=== PATIENT | male | born 1940 | race Caucasian/White ===

== ENCOUNTER 2023-08-08 09:53 | Observation (INO) ==
--- NOTE | 2023-07-09 13:08 | PAT Medication Instructions ---
Medication Instructions Date of Service July 09, 2023 Home Medications albuterol sulfate 90 mcg/actuation aerosol inhaler (ProAir HFA) 1 inh inhalation QID PRN Bronchospasm antiarthritic combination no.2 900 mg tablet (glucosamine-chondroitin) 900 mg PO BID ascorbate calcium (vitamin C) 500 mg tablet 500 mg PO QAM aspirin 81 mg tablet,delayed release (Adult Low Dose Aspirin) 81 mg PO QPM calcium carbonate 600 mg-vitamin D3 5 mcg (200 unit) tablet 1 tab PO QAM calcium polycarbophil 625 mg tablet (FiberCon) 625 mg PO BID cetirizine 10 mg capsule (All Day Allergy (cetirizine)) 10 mg PO QAM PRN Allergy Symptoms cholecalciferol (vitamin D3) 25 mcg (1,000 unit) capsule 25 mcg PO QAM coenzyme Q10 200 mg capsule 200 mg PO QPM diazepam 5 mg tablet (Valium) 5 mg PO BID PRN Anxiety lisinopril 5 mg tablet 5 mg PO QPM metoprolol succinate 25 mg tablet,extended release 24 hr (Toprol XL) 25 mg PO QPM multivitamin 1 tab PO QAM nitroglycerin 0.4 mg sublingual tablet (Nitrostat) 0.4 mg sublingual Q5M PRN Chest Pain rosuvastatin 20 mg tablet (Crestor) 20 mg PO QPM sertraline 25 mg tablet (Zoloft) 50 mg PO QAM sildenafil 100 mg tablet (Viagra) 100 mg PO DAILY PRN Erectile Dysfunction testosterone 50 mg/5 gram (1 %) transdermal gel 1 tube transdermal QAM levothyroxine 25 mcg tablet 25 mcg PO QAM naproxen sodium 220 mg tablet (Aleve) 220 mg PO Q12H PRN Pain Continue as directed nitroglycerin 0.4 mg sublingual tablet (Nitrostat) 0.4 mg sublingual Q5M PRN Chest Pain (if needed) ASK your surgeon for instructions naproxen sodium 220 mg tablet (Aleve) 220 mg PO Q12H PRN Pain ASK your prescriber and surgeon testosterone 50 mg/5 gram (1 %) transdermal gel 1 tube transdermal QAM STOP taking 2 weeks before surgery antiarthritic combination no.2 900 mg tablet (glucosamine-chondroitin) 900 mg PO BID coenzyme Q10 200 mg capsule 200 mg PO QPM STOP taking 24 hours before surgery sildenafil 100 mg tablet (Viagra) 100 mg PO DAILY PRN Erectile Dysfunction DO NOT take the morning of surgery ascorbate calcium (vitamin C) 500 mg tablet 500 mg PO QAM calcium carbonate 600 mg-vitamin D3 5 mcg (200 unit) tablet 1 tab PO QAM calcium polycarbophil 625 mg tablet (FiberCon) 625 mg PO BID cetirizine 10 mg capsule (All Day Allergy (cetirizine)) 10 mg PO QAM PRN Allergy Symptoms cholecalciferol (vitamin D3) 25 mcg (1,000 unit) capsule 25 mcg PO QAM multivitamin 1 tab PO QAM Take morning of surgery With a small sip of water, OTHERWISE NOTHING TO EAT OR DRINK AFTER MIDNIGHT: albuterol sulfate 90 mcg/actuation aerosol inhaler (ProAir HFA) 1 inh inhalation QID PRN Bronchospasm (use if needed; please bring with you to hospital day of surgery if possible) aspirin 81 mg tablet,delayed release (Adult Low Dose Aspirin) 81 mg PO QPM (unless surgeon directed otherwise) diazepam 5 mg tablet (Valium) 5 mg PO BID PRN Anxiety (if needed) sertraline 25 mg tablet (Zoloft) 50 mg PO QAM levothyroxine 25 mcg tablet 25 mcg PO QAM Take evening before surgery albuterol sulfate 90 mcg/actuation aerosol inhaler (ProAir HFA) 1 inh inhalation QID PRN Bronchospasm (if needed) calcium polycarbophil 625 mg tablet (FiberCon) 625 mg PO BID diazepam 5 mg tablet (Valium) 5 mg PO BID PRN Anxiety (if needed) lisinopril 5 mg tablet 5 mg PO QPM metoprolol succinate 25 mg tablet,extended release 24 hr (Toprol XL) 25 mg PO QPM rosuvastatin 20 mg tablet (Crestor) 20 mg PO QPM Other Notes If you have any questions please call us at [phone] or [phone] or [phone] or [phone]
--- NOTE | 2023-07-16 10:35 | Anesthesiology Consultation ---
Date of Service July 16, 2023 Assessment & Plan (1) Encounter for pre-operative examination: - Check BSG AM DOS - Infectious disease screening: Per assessment on 07/07/23: No known infectious disease contacts or current infectious disease symptoms. No noted recent Covid positive test result. - Outpatient joint assessment: Pt currently scheduled for inpatient pathway. If surgeon requests review for outpatient joint pathway, patient is not recommended candidate for outpatient joint program from anesthesia standpoint based upon available information. - Cardiology visit (10/31/2022): "the patient's history of coronary heart disease dates back to 09/04/2013 when he presented to a local hospital in [place] with a non ST segment elevation myocardial infarction. He underwent PCI to the ramus intermedius with a drug-eluting stent. In September,, he subsequently underwent staged PCI of a residual LAD stenosis with a drug-eluting stent at [facility]. He has a known 50 to 60% stenosis of the ostial portion the first obtuse marginalbranch which has been managed medically.. Plan:Continuechronic medications including aspirin, rosuvastatin, lisinopril, metoprolol. Nonrheumatic aortic valve insufficiency.. Stable moderate aortic valve regurgitation noted on recent echocardiogram. Plan: Repeat echocardiogram in 1 year, due, September,.. Ascending aortic aneurysm.. Noncontrast CT September, revealed stable maximum dimension of 4.8 x 4.6 centimeters. Asymptomatic. Continue surveillance, repeat CT at a 1 year interval. Patient has history of pulmonary nodules. Stable on recent CT. HTN, goal below 140/90.. Stable.. Plan: Continue lisinopril, metoprolol. Dyslipidemia, goal LDL below 70.. Plan: Continue current dose of rosuvastatin.. Follow Up: Return in about 1 year" Chart Review Chart Review: Acceptable Risk for Surgery and Patient seen in Pre Admission Testing Teaching & Discussion Pre-Anesthesia Teaching/Discussion Notes: Instructed NPO after midnight before surgery,except medications with 15 cc of water. Medication instructions provided according to the PAT guidelines. History Surgery Operation Date: 08/08/23 09:10 Proposed Procedures p Right Total Knee Arthroplasty - Dwain Suggs, Height/Weight Height: 5 ft 9.5 in Weight: 95.2 kg Allergies Allergy/AdvReac Type Severity Reaction Status Date / Time Sulfa (Sulfonamide Allergy Intermediate WBC count Verified 07/16/23 11:18 Antibiotics) "changes" (1968) Medications Home Medications Medication Instructions Recorded Confirmed Last Taken albuterol sulfate 90 mcg/actuation 1 inh inhalation QID PRN 03/14/21 07/07/23 Unknown aerosol inhaler (ProAir HFA) Bronchospasm antiarthritic combination no.2 900 900 mg PO BID 03/14/21 07/07/23 09/26/21 mg tablet (glucosamine-chondroitin) ascorbate calcium (vitamin C) 500 500 mg PO QAM 03/14/21 07/07/23 09/26/21 mg tablet aspirin 81 mg tablet,delayed 81 mg PO QPM 03/14/21 07/07/23 09/26/21 release (Adult Low Dose Aspirin) calcium carbonate 600 mg-vitamin 1 tab PO QAM 03/14/21 07/07/23 09/26/21 D3 5 mcg (200 unit) tablet calcium polycarbophil 625 mg 625 mg PO BID 03/14/21 07/07/23 09/26/21 tablet (FiberCon) cetirizine 10 mg capsule (All Day 10 mg PO QAM PRN Allergy Symptoms 03/14/21 07/07/23 09/26/21 Allergy (cetirizine)) cholecalciferol (vitamin D3) 25 25 mcg PO QAM 03/14/21 07/07/23 09/26/21 mcg (1,000 unit) capsule coenzyme Q10 200 mg capsule 200 mg PO QPM 03/14/21 07/07/23 09/26/21 diazepam 5 mg tablet (Valium) 5 mg PO BID PRN Anxiety 03/14/21 07/07/23 Unknown lisinopril 5 mg tablet 5 mg PO QPM 03/14/21 07/07/23 09/26/21 metoprolol succinate 25 mg 25 mg PO QPM 03/14/21 07/07/23 09/26/21 tablet,extended release 24 hr (Toprol XL) multivitamin 1 tab PO QAM 03/14/21 07/07/23 09/26/21 nitroglycerin 0.4 mg sublingual 0.4 mg sublingual Q5M PRN Chest 03/14/21 07/07/23 Unknown tablet (Nitrostat) Pain rosuvastatin 20 mg tablet (Crestor) 20 mg PO QPM 1107/07/23 09/26/21 sertraline 25 mg tablet (Zoloft) 50 mg PO QAM 03/14/21 07/07/23 Unknown sildenafil 100 mg tablet (Viagra) 100 mg PO DAILY PRN Erectile 03/14/21 07/07/23 Unknown Dysfunction testosterone 50 mg/5 gram (1 %) 1 tube transdermal QAM 03/14/21 07/07/23 Unknown transdermal gel levothyroxine 25 mcg tablet 25 mcg PO QAM 07/07/23 07/07/23 Unknown naproxen sodium 220 mg tablet 220 mg PO Q12H PRN Pain 07/07/23 07/07/23 Unknown (Aleve) Past Medical History Medical History Anxiety Aortic aneurysm Monitored by [facility] cardio, CT chest/Echo 09/2022 Arthritis Hands Coronary artery disease Stent x1 (2013) History of COVID-19 02/2023: mild symptoms, resolved Hx of myocardial infarction 2013 > stent x1 Hypercholesteremia Hypertension Hypothyroidism Osteoarthritis Prediabetes Per [facility] records Seasonal depression Spinal stenosis Exercise / Class Metabolic Activity II 4-5 Yardwork/Stairs/Walk up hill (one FS: No CP, no SOB) Past Family History Family History Father Myocardial infarction Mother Hypertension Brother Hypertension Past Surgical History Surgical History History of bursectomy Left History of cardiac cath 2014- stent x1 History of colonoscopy History of heart artery stent 2014 Hx of bilateral cataract extraction Hx of nasal polypectomy benign Past Anesthesia History No Hx of Anesthesia Complications and No Family Hx of Anesthesia Complications History of PONV No Hx of PONV and No Hx of Motion Sickness Social History Smoking Status: Light tobacco smoker tobacco type: cigars (Rare cigar use (none in last several months) ) Do You Dip or Chew Tobacco: No Hx Alcohol Use: No Hx Substance Use: No substance use type: does not use Review of Systems Patient denies chest pain, shortness of breath, dyspnea on exertion, fever, chills, cough, wheezing. Physical Exam Vital Signs BP 129/65 P 58 TEMP 98.2 SP02 97%RA RESP 18 Physical Full cervical extension range of motion. Full TMJ range of motion. TMD 3.5 finger breaths Mallampati Score 2 Dentition: missing sides/molars, Right upper side removable tooth Lungs: clear throughout to auscultation Cardiac: regular rate and rhythm, no murmurs noted Spine: normal Carotid arteries: negative bruit Extremities: no LE edema Lab Results Anesthesia Preop Results Results Anesthesia Widget: WBC 7.26 K/ul (4.8-10.8) 07/16/23 Hgb 15.8 g/dl (14.0-18.0) 07/16/23 Hct 47.2 % (42.0-52.0) 07/16/23 Plt 188 K/uL (130-400) 07/16/23 Na 136 mmol/L (136-145) 07/16/23 K 4.9 mmol/L (3.5-5.1) 07/16/23 Cl 102 mmol/L (98-107) 07/16/23 CO2 31 mmol/L (21-32) 07/16/23 BUN 18 mg/dl (6-23) 07/16/23 Creat 0.95 mg/dl (0.6-1.4) 07/16/23 Glucose Level 101 mg/dl (70-99(Fasting)) H 07/16/23 PT 11.7 Seconds (9.0-12.0) 07/16/23 PTT 32 Seconds (21-31) H 07/16/23 INR 1.1 (0.9-1.1) 07/16/23 Blood Type O Negative 07/16/23 Antibody Screen NEGATIVE 07/16/23 Testing Electrocardiogram Date: 07/16/23 SB with first degree AVB at 51bpm. "Otherwise normal ECG" No significant change compared to per urology nurse comparison. Echocardiogram Date: 09/30/22 LVEF 60-64%. LV wall motion is normal. Mildly increased concentric LV wall thickness. Grade 1 diastolic dysfunction. Mild AV sclerosis. Moderate AR. Mild MR/TR. Moderately enlarged ascending aorta, 4.5cm. Moderately enlarged aortic root, 4.6cm. Compared to 10/08/2021, no significant change per report. Other Testing CT scan Date: 10/01/23 Stable dilated ascending aorta measuring up to 4.8 x 4.6 cm since prior chest CT. Consider continued surveillance. Few small subcentimeter pulmonary nodules bilaterally, also stable since the prior chest CT. No new pulmonary nodules.
[~2023-08-08 09:53] MED LIST: ROPIVACAINE 0.5% 5 MG/ML 30 ML VIAL ONE
[2023-08-08] MEDS: LR 60ML/HR IV SCH (10:16)
[2023-08-08] MEDS ORDERED: MIDAZOLAM HCL 1 MG/ML 2ML VIAL ONE (10:48)
[2023-08-08] MEDS: GABAPENTIN 300 MG CAP PO SCH (11:11)
[2023-08-08] MEDS: LR 500ML BOLUS, THEN 15ML/HR IV SCH (11:11)
[2023-08-08] MEDS: dexAMETHasone**PF** 10 MG/ML VIAL IV SCH (11:12)
[2023-08-08] MEDS: FAMOTIDINE 20 MG TAB PO SCH (11:12)
[2023-08-08] MEDS: ACETAMINOPHEN 500 MG TAB PO SCH ×2 (11:12→21:03)
[2023-08-08] MEDS ORDERED: fentaNYL citrate PF 100 MCG/2 ML VIAL IV PRN (11:18)
[2023-08-08] MEDS ORDERED: HYDROmorphone INJ 1 MG/ML SYRINGE IV PRN (11:18)
[2023-08-08] MEDS ORDERED: ePHEDrine sulfate 50 MG/ML AMP IV PRN (11:18)
[2023-08-08] MEDS ORDERED: ONDANSETRON INJ 2 MG/ML 2 ML VIAL IV PRN ×2 (11:18→15:23)
[2023-08-08] MEDS ORDERED: ATROPINE SULFATE 0.1 MG/ML 10ML SYR IV PRN (11:18)
[2023-08-08] MEDS ORDERED: BUPIVACAINE 0.5 % 5 MG/1 ML PF 10ML VIAL ONE (11:55)
[2023-08-08] MEDS: TRANEXAMIC ACID 1,000 MG **IV Pre-op IV SCH (12:02)
--- NOTE | 2023-08-08 12:11 | History & Physical Bridge Note ---
Date of Service August 08, 2023 History & Physical Bridge Note I have examined the patient, reviewed the History & Physical and in the interval since the performance of the History & Physical I have noted the following changes of clinical significance: no changes noted
[2023-08-08] MEDS: ceFAZolin 2000MG 2,000 MG/15 ML SYR IV SCH (12:24)
[2023-08-08] MEDS ORDERED: PROPOFOL IV EMULSION 10 MG/ML 20 ML VIAL IV ONE ×2 (12:25→13:13)
[2023-08-08] MEDS ORDERED: ONDANSETRON INJ 2 MG/ML 2 ML VIAL ONE (13:03)
[2023-08-08] MEDS: TRANEXAMIC ACID 1,000 MG **IV Intra-op IV SCH (13:28)
--- NOTE | 2023-08-08 13:32 | Operative Report ---
PG Post Operative Report Pre & Post Diagnosis Operation Date: 08/08/23 12:00 Pre-Op Diagnosis: Degenerative Joint Disease Right Knee Post-Op Diagnosis: Degenerative Joint Disease Right Knee I identified the patient and participated in the time-out.: Yes Procedure Operation Date: 08/08/23 12:00 Actual Procedures p Right Total Knee Arthroplasty(Right) - Dwain Suggs DO Surgeon Dwain Suggs DO Banquet Captain Reynaldo Jansen PA-C Estimated Blood Loss 30 Findings Consistent with Post-Op Diagnosis Specimens Right femoral and tibial bone Description of Procedure Implants used: I used a Devin Persona total knee arthroplasty system with a size 11 standard PS femur, G tibia, 34 oval patella, and a size 14 CPS polyethylene bearing. All components were cemented in place with Biomet cement. Gennaro arrived [facility] for the above procedure. He was seen in the preoperative holding area and the operative extremity was identified and signed. He was given a preoperative antibiotic, TXA, a spinal anesthetic and an adductor nerve block. He was taken back to the operating room and laid on the table in supine position. He was given basic sedation. The operative knee was then prepped and draped in sterile fashion. A timeout was done, and the patient and the operative extremity was properly identified. A midline incision was made directly over the patella. Dissection was taken down to the extensor mechanism. A medial parapatellar arthrotomy was used. The medial retinaculum was released and the fat pad was mostly excised. The knee was flexed and the ACL, PCL, and meniscus were removed. A drill was sent down the center of the femoral canal followed by an intramedullary jeremias. Off that jeremias a distal femoral cutting block was placed. 9 mm was resected off the distal femur at 5 of valgus. A posterior referencing AP sizing guide was then placed on the distal femur. The femur measured to be a size 11. 2 drill holes were placed in 3 of external rotation. A 4-in-1 cutting block was then impacted into place. Anterior, posterior, and chamfer cuts were then made. The proximal tibia was then exposed. An external tibial alignment guide was placed. A tibial cut guide was then anchored in place and the proximal tibia was then resected. The posterior aspect of the knee was then opened up and any additional meniscus fragments and osteophytes were removed. The tibia measured to be a size G. The tibial plate was then placed in the appropriate rotation and the tibia was drilled and punched. Trial components were then placed. I used a size 14 CPS polyethylene insert. The knee was brought through a full range of motion and felt to be stable. The peg holes for the femoral component were then drilled. The patella was then everted and 9 mm was resected off the posterior aspect of the patella. The patella measured to be a size 34 oval. 3 peg holes were then drilled. A trial patella was placed. The knee was once again brought through a full range of motion and felt to be stable. Trial components were then removed. The surrounding soft tissues were injected with 100 cc of an orthopedic pain control cocktail. All components were then cemented into place with Biomet cement. The final polyethylene insert was then snapped into place. Once cement was dry the tourniquet was deflated. Hemostasis was obtained. A dilute betadyne lavage was then done for 3 minutes. The joint was then irrigated with normal saline solution. The medial parapatellar arthrotomy was then closed with #1 Vicryl suture. The skin was closed with 2-0 Vicryl, 3-0V lock suture, and jona. A soft compressive dressing was placed. He was then transferred to a hospital bed and taken to the postanesthesia care unit in stable condition. He tolerated the procedure well. Reynaldo Jansen PA-C, was present for the entire procedure. He was critical for patient positioning, prepping, draping, retraction exposure, wound closure and application of sterile dressing. I attest to the content of the Intraoperative Record and any orders documented therein. Any exceptions are noted below.
[2023-08-08] MEDS: ROPIV 0.5% 246mg, Ketorolac 30mg, EPINEPHrine 0.5mg in NSS INFIL SCH (13:36)
[2023-08-08] MEDS: ORTHO JOINT ANESTHETIC ONE (13:37)
--- NOTE | 2023-08-08 14:42 | XRay Report ---
XR knee RT 1 or 2V routine HISTORY: 82 years-old Male Surgical Post Op right knee arthroplasty COMPARISON: 07/16/2023 TECHNIQUE: 2 views of the right knee FINDINGS: Total joint arthroplasty with patellar resurfacing. Anterior midline skin jona with expected posto perative soft tissue swelling and deep tissue air. Arterial calcifications. No acute fracture or disl ocation. IMPRESSION: Total joint arthroplasty with expected postoperative changes. ACT 112: Negative or not required by law. The above report was generated using voice recognition software. It may contain grammatical, syntax o r spelling errors. Electronically signed by: Esteban Gallegos M.D. 08/08/2023 2:41 PM
[2023-08-08] MEDS: SODIUM CHLORIDE 0.9% 1,000 ML IV SCH (15:20)
[2023-08-08] MEDS ORDERED: oxyCODONE HCL IR 5 MG TAB (IMMEDIATE RELEASE) PO PRN (15:23)
[2023-08-08] MEDS ORDERED: MAGNESIUM HYDROXIDE SUSP 30 ML UDC PO PRN (15:23)
[2023-08-08] MEDS ORDERED: NALOXONE HCL 0.4 MG/1 ML VIAL/CARP IV PRN (15:23)
[2023-08-08] MEDS ORDERED: traMADol HCL 50 MG TABLET PO PRN (15:23)
[2023-08-08] MEDS ORDERED: METOCLOPRAMIDE HCL INJ 5 MG/ML 2 ML VIAL IV PRN (15:23)
[2023-08-08] MEDS ORDERED: bisacodyL 10 MG SUPP PR PRN (15:23)
--- NOTE | 2023-08-08 15:35 | Anesthesiology Progress Note ---
Date of Service August 08, 2023 Anesthesia Post Procedure Vital Signs Vital Signs: Temp Pulse Pulse Resp BP Pulse Ox O2 Del Method 08/08/23 15:00 61 16 144/65 H 94 Room Air 08/08/23 14:45 67 14 105/66 95 Room Air 08/08/23 14:30 36.4 C L 55 L 17 128/57 L 95 Room Air 08/08/23 14:25 57 L 19 123/57 L 94 Room Air 08/08/23 14:15 56 L 16 125/57 L 94 Room Air 08/08/23 14:05 56 L 12 132/56 L 92 Room Air 08/08/23 13:56 36.2 C L 60 16 106/56 L 93 Room Air 08/08/23 10:39 36.6 C 54 L 20 180/74 H 97 Room Air Transfer of Care Handoff Completed per policy Notes Mental Status: alert / awake / arousable Patient Amnestic to Procedure: Yes Nausea / Vomiting: adequately controlled Pain: adequately controlled Airway Patency, RR, SpO2: stable & adequate BP & HR: stable & adequate Hydration State: stable & adequate Neuraxial Anesthesia: was administered and sensory block is resolving Anesthetic Complications: no major complications apparent
--- NOTE | 2023-08-08 15:44 | Anesthesiology Progress Note ---
Date of Service August 08, 2023 Anesthesia Post Procedure Vital Signs Vital Signs: Temp Pulse Pulse Resp BP Pulse Ox O2 Del Method 08/08/23 15:15 97.3 F L 64 18 148/76 H 95 Room Air 08/08/23 15:00 61 16 144/65 H 94 Room Air 08/08/23 14:45 67 14 105/66 95 Room Air 08/08/23 14:30 97.5 F L 55 L 17 128/57 L 95 Room Air 08/08/23 14:25 57 L 19 123/57 L 94 Room Air 08/08/23 14:15 56 L 16 125/57 L 94 Room Air 08/08/23 14:05 56 L 12 132/56 L 92 Room Air 08/08/23 13:56 97.2 F L 60 16 106/56 L 93 Room Air 08/08/23 10:39 97.9 F 54 L 20 180/74 H 97 Room Air Transfer of Care Handoff Completed per policy Notes Mental Status: alert / awake / arousable and participated in evaluation Patient Amnestic to Procedure: Yes Nausea / Vomiting: adequately controlled Pain: adequately controlled Airway Patency, RR, SpO2: stable & adequate BP & HR: stable & adequate Hydration State: stable & adequate Neuraxial Anesthesia: was administered and sensory block is resolving Anesthetic Complications: no major complications apparent and Pt Satisfied with anesthetic care
[2023-08-08] MEDS: KETOROLAC TROMETHAMINE 15 MG/ML VIAL IV SCH (16:27)
[2023-08-08] MEDS: SENNA 8.6 MG TAB PO SCH (19:59)
[2023-08-08] MEDS: ROSUVASTATIN CALCIUM 20 MG TAB PO SCH (19:59)
[2023-08-08] MEDS: ceFAZolin 1000MG 1,000 MG/7.5 ML SYR IV SCH (19:59)
[2023-08-08] MEDS: DOCUSATE SODIUM 100 MG CAP PO SCH (19:59)
[2023-08-08] MEDS: METOPROLOL SUCC 25MG EXT REL TAB PO SCH (19:59)
[2023-08-08] MEDS: lisinopril 5 MG TAB PO SCH (20:00)
[2023-08-08] MEDS: ASPIRIN 81 MG ECTAB PO SCH (20:00)
[2023-08-09] MEDS: LEVOTHYROXINE SODIUM 25 MCG TABLET PO SCH (05:37)
[2023-08-09] MEDS: MULTIVITAMIN TAB PO SCH (08:05)
[2023-08-09] MEDS: dexAMETHasone 4 MG TAB PO SCH (08:05)
[2023-08-09] MEDS: SERTRALINE HCL 50 MG TABLET PO SCH (08:05)
--- NOTE | 2023-08-09 08:11 | Orthopedic Progress Note ---
Date of Service August 09, 2023 Assessment & Plan (1) Status post right knee replacement: Overall is doing very well. Is not having much pain in the right knee. He will be seen by physical therapy today for ambulation and range of motion exercises. He is on aspirin for DVT prophylaxis. He will be discharged home later today. He will follow-up orthopedics in 2 weeks. Esteban Burdick was seen and examined at bedside this morning. Overall is doing very well. Is not having much pain in the right knee. He has been up and ambulating to the bathroom. Has no complaints.. Review of Systems All systems reviewed & are unremarkable except as noted in HPI & below. Physical Exam On physical examination of the right knee, the dressing is clean and dry. His leg is out full extension. He is active dorsiflexion plantarflexion of the right ankle.. Results & Data Results & Data Laboratory Results . Diagnostic Findings Postoperative x-rays of the right knee show the prosthesis to be in anatomic alignment without any evidence of fracture, screws, or loosening.. PG Care Time/CCT Total # of Minutes Spent Total Time Spent with Patient: Total time spent is greater than 50% in coordination of care (as documented) at patient's floor/unit and/or counseling patient: Coding Level of Care Code 04319 Post Operative Follow-Up Diagnoses Status post right knee replacement Z96.651
--- NOTE | 2023-08-09 08:12 | Discharge Summary ---
Date of Service August 09, 2023 Principal Diagnosis Same as "Discharge Diagnosis" noted below under Discharge Instructions. Discharge Exam On physical examination of the right knee, the dressing is clean and dry. His leg is out full extension. He is active dorsiflexion plantarflexion of the right ankle.. Discharge Data Procedures Performed Operation Date: 08/08/23 12:00 Actual Procedures p Right Total Knee Arthroplasty(Right) - Dwain Suggs DO Ordered Studies 08/08/23 05:00 US - OR guided needle placemen Routine Hospital Course (1) Status post right knee replacement: On August 08, 2023 Gennaro arrived at [facility] and underwent a right knee replacement without complication. He had a spinal anesthetic. Postoperatively he was started on aspirin for DVT prophylaxis and transferred to the general orthopedic floors. His hospital course was uneventful. On postop day #1, his vital signs were stable and his pain was well-controlled. He was able to participate well with physical therapy doing ambulation and range of motion exercises. He was then discharged home. He will follow-up with orthopedics in 2 weeks. PG Care Time/CCT Total # of Minutes Spent Total Time Spent with Patient: Total time spent is greater than 50% in coordination of care (as documented) at patient's floor/unit and/or counseling patient: Discharge Plan Discharge Items Patient Disposition: Home - Self-Care Reason For Visit: Degenerative Joint Disease Right Knee Discharge Diagnosis: Right knee replacement Activity: As commented below Non-emergency contact: Surgeon Call non-emergency contact if: your wound has increased redness and your wound has increased drainage Follow-up/Referrals: Edward Damon MD [Primary Care Provider] - Diet: Regular Addtl Attending Provider Instructions: Activity and Therapy Recommendations: * If you are using [facility] then therapy will be provided at your home until they feel you have accomplished all of your goals. * If you are using [facility] then Physical Therapy will be provided until they feel you are ready to start Outpatient Physical Therapy. * If you are not using home therapy then Outpatient Physical Therapy should start about 3-5 days from your day of surgery. Therapy will last about 6-10 weeks * It is important not to put a pillow under your knee when you are relaxing or sleeping. It is just as important to make sure you are getting your knee perfectly straight as it is to regain your knee bend. * You were shown a series of exercises in the hospital. Do these exercises three times each day including the exercises you were shown in physical therapy. * Get up and walk several times each day. For the first four weeks, try not to stand or walk for more than one hour at a time. If you do stand or walk for more than one hour, you will not hurt anything, but your leg will likely swell. * As you feel comfortable, you may change from the walker or crutches to a cane and then to independent walking. Medications: * Narcotic You will likely be sent home from the hospital with a prescription for the narcotic pain medication that worked best throughout your stay. * Cefadroxil -take the antibiotic twice a day for 10 days to help prevent infection. * Aspirin Most patients will be required to take Aspirin 81mg twice a day for 6 weeks after surgery. This is obtained [id number] and a prescription is not necessary. * Other medications may be prescribed for specific circumstances. If you have any questions, please call the office at . * Resume previous home medications unless otherwise instructed TEDs/Elastic Stockings: The white elastic stockings help limit swelling and prevent blood clots from forming in your legs.~ The more you wear them, the more they work. Wear them for six weeks. Dressing Care: The dressing can be changed after physical therapy on postop day #1. Daily dry dressing changes for a few days, especially if the incision is still draining some. If the incision is not draining then you may leave the jona open to air. If there is a little bit of drainage or if the jona are getting stuck on your clothing then cover the incision with a dry dressing. The jona will be removed at your 2 week follow-up appointment. Showering: You may shower 5 days from the day of surgery as long as the incision is no longer draining. You may shower with the jona exposed. Let soapy water run over the jona and pat them dry. Do not scrub or soak the incision. Things To Watch For: * Drainage from the incision site that occurs more than one week after your surgery. * Increased redness at the incision site. * Fever above 102 degrees Fahrenheit. * Unusual chest pain or shortness of breath. * Call [facility] at with any of the above problems Follow-Up Visit: Follow-up with Dr. Suggs's PA (Dwain Gan) 2-3 weeks after your day of surgery. He will remove your jona and answer any questions. If you have any additional questions or concerns, Dr Suggs is usually in the office at the same time and will be available An appointment was probably scheduled when you signed-up for surgery in the office. If you have any questions call Office Instructions: More detailed instructions as well as Frequently Asked Questions were provided in a folder by our office when you signed-up for surgery. Please review these instructions when you get home. If you have any further questions or concerns, please feel free to call the office at [phone] Pending Studies at Discharge: No Stand-Alone Forms: My [facility] [employer], Smoking Cessation Medications and DC Order Prescriptions: New oxycodone 5 mg Tablet 5 mg PO Q4H PRN (Reason: pain) Qty: 30 0RF cefadroxil 500 mg capsule 500 mg PO BID 10 Days Qty: 20 0RF Continued sertraline [Zoloft] 25 mg tablet 50 mg PO QAM diazepam [Valium] 5 mg tablet 5 mg PO BID PRN (Reason: Anxiety) rosuvastatin [Crestor] 20 mg tablet 20 mg PO QPM metoprolol succinate [Toprol XL] 25 mg tablet extended release 24 hr 25 mg PO QPM testosterone 50 mg/5 gram (1 %) gel 1 tube transdermal QAM lisinopril 5 mg tablet 5 mg PO QPM nitroglycerin [Nitrostat] 0.4 mg tablet, sublingual 0.4 mg sublingual Q5M PRN (Reason: Chest Pain) Rx Instructions: do not exceed 3 doses per episode albuterol sulfate [ProAir HFA] 90 mcg/actuation HFA aerosol inhaler 1 inh inhalation QID PRN (Reason: Bronchospasm) calcium polycarbophil [FiberCon] 625 mg tablet 625 mg PO BID calcium carbonate-vitamin D3 600 mg(1,500mg) -200 unit tablet 1 tab PO QAM glucosamine-chondroitin 900 mg tablet 900 mg PO BID cholecalciferol (vitamin D3) 25 mcg (1,000 unit) capsule 25 mcg PO QAM All Day Allergy (cetirizine) 10 mg capsule 10 mg PO QAM PRN (Reason: Allergy Symptoms) coenzyme Q10 200 mg capsule 200 mg PO QPM sildenafil [Viagra] 100 mg tablet 100 mg PO DAILY PRN (Reason: Erectile Dysfunction) Rx Instructions: administer 30 minutes to 4 hours before activity multivitamin Tablet 1 tab PO QAM ascorbate calcium (vitamin C) 500 mg tablet 500 mg PO QAM naproxen sodium [Aleve] 220 mg Tablet 220 mg PO Q12H PRN (Reason: Pain) levothyroxine 25 mcg Tablet 25 mcg PO QAM Changed aspirin [Adult Low Dose Aspirin] 81 mg tablet,delayed release (DR/EC) 81 mg PO BID 42 Days Qty: 0 0RF Discharge Orders: Discharge Order (Routine); Ordered 08/09/23 Ordered By: Dwain Suggs Admission Data Admit Date/Time: 08/08/23 15:17 Attending Provider: Dwain Suggs Admit Provider: Dwain Suggs Primary Care Provider: Edward Damon
== END 2023-08-09 10:50 | disposition home or self-care (01) ==
LOC: 3E 09:53 → ASU 09:53

== ENCOUNTER 2024-08-09 06:38 | Observation (INO) ==
--- NOTE | 2024-07-14 09:18 | PAT Medication Instructions ---
Medication Instructions Date of Service July 14, 2024 Home Medications Medication Instructions Recorded hydrocodone 5 mg-acetaminophen 325 1 tab PO Q6H PRN pain #60 tabs 03/23/24 mg tablet amoxicillin 500 mg tablet 2,000 mg (4 x 500 mg) PO ONCE #12 07/13/24 tabs albuterol sulfate 90 mcg/actuation aerosol inhaler (ProAir HFA) 1 inh inhalation QID PRN Bronchospasm antiarthritic combination no.2 900 mg tablet (glucosamine-chondroitin) 900 mg PO BID ascorbate calcium (vitamin C) 500 mg tablet 500 mg PO QAM calcium 600 mg (as carbonate)-vitamin D3 5 mcg (200 unit) tablet 1 tab PO QAM calcium polycarbophil 625 mg tablet (FiberCon) 625 mg PO BID cetirizine 10 mg capsule (All Day Allergy (cetirizine)) 10 mg PO QAM Allergy Symptoms cholecalciferol (vitamin D3) 25 mcg (1,000 unit) capsule 25 mcg PO QAM coenzyme Q10 200 mg capsule 200 mg PO QPM diazepam 5 mg tablet (Valium) 5 mg PO BID PRN Anxiety lisinopril 5 mg tablet 5 mg PO QPM metoprolol succinate 25 mg tablet,extended release 24 hr (Toprol XL) 25 mg PO QPM multivitamin 1 tab PO QAM nitroglycerin 0.4 mg sublingual tablet (Nitrostat) 0.4 mg sublingual Q5M PRN Chest Pain rosuvastatin 20 mg tablet (Crestor) 20 mg PO QPM sertraline 25 mg tablet (Zoloft) 50 mg PO QAM sildenafil 100 mg tablet (Viagra) 100 mg PO DAILY PRN Erectile Dysfunction testosterone 50 mg/5 gram (1 %) transdermal gel 1 tube transdermal QAM levothyroxine 25 mcg tablet 25 mcg PO QAM naproxen sodium 220 mg tablet (Aleve) 220 mg PO Q12H PRN Pain hydrocodone 5 mg-acetaminophen 325 mg tablet 1 tab PO Q6H PRN pain amoxicillin 500 mg tablet 2,000 mg PO ONCE PRN dental aspirin 81 mg tablet,delayed release (Adult Low Dose Aspirin) 81 mg PO QPM ezetimibe 10 mg tablet 10 mg PO QAM amoxicillin 500 mg tablet 2,000 mg (4 x 500 mg) PO ONCE Continue as directed amoxicillin 500 mg tablet 2,000 mg PO ONCE PRN dental amoxicillin 500 mg tablet 2,000 mg (4 x 500 mg) PO ONCE nitroglycerin 0.4 mg sublingual tablet (Nitrostat) 0.4 mg sublingual Q5M PRN Chest Pain (if needed) testosterone 50 mg/5 gram (1 %) transdermal gel 1 tube transdermal QAM ASK your surgeon for instructions naproxen sodium 220 mg tablet (Aleve) 220 mg PO Q12H PRN Pain ASK your prescriber and surgeon aspirin 81 mg tablet,delayed release (Adult Low Dose Aspirin) 81 mg PO QPM STOP taking 2 weeks before surgery (or as soon as possible if surgery is within 2 weeks) antiarthritic combination no.2 900 mg tablet (glucosamine-chondroitin) 900 mg PO BID coenzyme Q10 200 mg capsule 200 mg PO QPM DO NOT take the morning of surgery ascorbate calcium (vitamin C) 500 mg tablet 500 mg PO QAM calcium 600 mg (as carbonate)-vitamin D3 5 mcg (200 unit) tablet 1 tab PO QAM calcium polycarbophil 625 mg tablet (FiberCon) 625 mg PO BID cetirizine 10 mg capsule (All Day Allergy (cetirizine)) 10 mg PO QAM Allergy Symptoms cholecalciferol (vitamin D3) 25 mcg (1,000 unit) capsule 25 mcg PO QAM multivitamin 1 tab PO QAM sildenafil 100 mg tablet (Viagra) 100 mg PO DAILY PRN Erectile Dysfunction Take morning of surgery With a small sip of water, OTHERWISE NOTHING TO EAT OR DRINK AFTER MIDNIGHT: albuterol sulfate 90 mcg/actuation aerosol inhaler (ProAir HFA) 1 inh inhalation QID PRN Bronchospasm (if needed) diazepam 5 mg tablet (Valium) 5 mg PO BID PRN Anxiety (if needed) sertraline 25 mg tablet (Zoloft) 50 mg PO QAM levothyroxine 25 mcg tablet 25 mcg PO QAM hydrocodone 5 mg-acetaminophen 325 mg tablet 1 tab PO Q6H PRN pain (if needed) ezetimibe 10 mg tablet 10 mg PO QAM Please bring rescue inhaler with you to hospital day of surgery if possible Take evening before surgery albuterol sulfate 90 mcg/actuation aerosol inhaler (ProAir HFA) 1 inh inhalation QID PRN Bronchospasm (if needed) calcium polycarbophil 625 mg tablet (FiberCon) 625 mg PO BID diazepam 5 mg tablet (Valium) 5 mg PO BID PRN Anxiety (if needed) lisinopril 5 mg tablet 5 mg PO QPM metoprolol succinate 25 mg tablet,extended release 24 hr (Toprol XL) 25 mg PO QPM rosuvastatin 20 mg tablet (Crestor) 20 mg PO QPM hydrocodone 5 mg-acetaminophen 325 mg tablet 1 tab PO Q6H PRN pain (if needed) Other Notes If you have any questions please call us at [phone] or [phone] or [phone] or [phone]
--- NOTE | 2024-07-20 10:51 | Anesthesiology Consultation ---
Date of Service July 20, 2024 Assessment & Plan (1) Encounter for pre-operative examination: Chart Review Chart Review: Acceptable Risk for Surgery and Patient seen in Pre Admission Testing - Patient is NOT an ideal OPJ candidate (currently 23 hour obs) Per PAT appt on 07/20/24, no recent illness/disease exposures, illness related symptoms, or recent illness/disease positive tests. Will leave to surgeon's discretion if preop Covid testing needed Patient seen by cardio 11/20/23= seen for routine cardiology follow up. Feels well and offers no acute concerns. Patient is active. No symptoms. EKG done in office reviewed. CAD- NSTEMI s/p SÁNCHEZ to ramus (09/05/23) and LAD SÁNCHEZ 09/2013. KNown 50- 60% ostial 1st OM- medically managed. Stable. Ascending aorta aneurysm/aortic root enlargement= moderately enlarged- stable. Will continue to monitor. continue current meds. Repeat chest CT and ECHO in September 2024. Mild to moderate AR- stable on 09/2023 ECHO. HTN- controlled. HLD- on statin. Follow up in one year Right TKA 08/08/23= Done under SAB at L3-4 with three attempts Teaching & Discussion Pre-Anesthesia Teaching/Discussion Notes: Instructed NPO after midnight before surgery,except medications with 15 cc of water. Medication instructions provided according to the PAT guidelines. History Surgery Operation Date: 08/09/24 08:40 Proposed Procedures p Left Total Knee Arthroplasty - Dwain Suggs, Height/Weight Height: 5 ft 9.5 in Weight: 95.1 kg Allergies Allergy/AdvReac Type Severity Reaction Status Date / Time Sulfa (Sulfonamide Allergy Intermediate WBC count Verified 07/12/24 13:14 Antibiotics) "changes" (1968) Medications Home Medications Medication Instructions Recorded Confirmed Last Taken albuterol sulfate 90 mcg/actuation 1 inh inhalation QID PRN 03/14/21 07/12/24 08/04/15 aerosol inhaler (ProAir HFA) Bronchospasm antiarthritic combination no.2 900 900 mg PO BID 03/14/21 07/12/24 08/07/23 mg tablet (glucosamine-chondroitin) ascorbate calcium (vitamin C) 500 500 mg PO QAM 03/14/21 07/12/24 08/07/23 08:00 mg tablet calcium 600 mg (as 1 tab PO QAM 03/14/21 07/12/24 08/07/23 08:00 carbonate)-vitamin D3 5 mcg (200 unit) tablet calcium polycarbophil 625 mg 625 mg PO BID 03/14/21 07/12/24 08/07/23 08:00 tablet (FiberCon) cetirizine 10 mg capsule (All Day 10 mg PO QAM Allergy Symptoms 03/14/21 07/12/24 08/07/23 08:00 Allergy (cetirizine)) cholecalciferol (vitamin D3) 25 25 mcg PO QAM 03/14/21 07/12/24 08/07/23 08:00 mcg (1,000 unit) capsule coenzyme Q10 200 mg capsule 200 mg PO QPM 03/14/21 07/12/24 08/07/23 diazepam 5 mg tablet (Valium) 5 mg PO BID PRN Anxiety 03/14/21 07/12/24 08/07/23 22:00 lisinopril 5 mg tablet 5 mg PO QPM 03/14/21 07/12/24 08/07/23 19:00 metoprolol succinate 25 mg 25 mg PO QPM 03/14/21 07/12/24 08/07/23 19:00 tablet,extended release 24 hr (Toprol XL) multivitamin 1 tab PO QAM 03/14/21 07/12/24 08/07/23 08:00 nitroglycerin 0.4 mg sublingual 0.4 mg sublingual Q5M PRN Chest 03/14/21 07/12/24 Unknown tablet (Nitrostat) Pain rosuvastatin 20 mg tablet (Crestor) 20 mg PO QPM 03/14/21 07/12/24 08/07/23 19:00 sertraline 25 mg tablet (Zoloft) 50 mg PO QAM 03/14/21 07/12/24 08/07/23 08:00 sildenafil 100 mg tablet (Viagra) 100 mg PO DAILY PRN Erectile 03/14/21 07/12/24 07/02/23 Dysfunction testosterone 50 mg/5 gram (1 %) 1 tube transdermal QAM 03/14/21 07/12/24 08/04/23 transdermal gel levothyroxine 25 mcg tablet 25 mcg PO QAM 07/07/23 07/12/24 08/08/23 06:30 naproxen sodium 220 mg tablet 220 mg PO Q12H PRN Pain 07/07/23 07/12/24 08/01/23 (Aleve) hydrocodone 5 mg-acetaminophen 325 1 tab PO Q6H PRN pain #60 tabs 03/23/24 07/12/24 Unknown mg tablet amoxicillin 500 mg tablet 2,000 mg PO ONCE PRN dental 07/12/24 07/12/24 Unknown aspirin 81 mg tablet,delayed 81 mg PO QPM 07/12/24 07/12/24 Unknown release (Adult Low Dose Aspirin) ezetimibe 10 mg tablet 10 mg PO QAM 07/12/24 07/12/24 Unknown amoxicillin 500 mg tablet 2,000 mg (4 x 500 mg) PO ONCE #12 07/13/24 Unknown tabs Past Medical History Medical History (Updated 07/20/24 @ 16:03 by Krystle Murray PA-C) Anxiety Aortic aneurysm Monitored by [facility] cardio Chest CT 09/22/23- stable ascending aorta aneurysm at 4.8cm Coronary artery disease - s/p ramus intermedius SÁNCHEZ x 1 08/2013 with staged PCI of residual LAD with SÁNCHEZ x 1 09/2013 - known 50-60% stenosis of ostial 1st OM- medically managed History of COVID-19 02/2023: mild symptoms, resolved Hx of bronchitis (2018) reason for inhaler Hx of myocardial infarction (2013) 2013 > stent x1- follows with ch[facility] Hypercholesteremia Hypertension Hypothyroidism Osteoarthritis Prediabetes Diet controlled Hgb A1C 6.1 on 07/20/24 Pulmonary nodules Seasonal allergies Seasonal depression Spinal stenosis Exercise / Class Metabolic Activity II 4-5 Yardwork/Stairs/Walk up hill (one flight of stairs - no chest pain or SOB ) Past Family History Family History Father Myocardial infarction Mother Hypertension Brother Hypertension Past Surgical History Surgical History History of bursectomy Left History of [facility] (2013) [facility] [place] follows with cardio [facility]ere armenta (last seen approx. 4 months ago) History of heart artery stent (2013) 2013-[place] 1 month later - 1 stent [place] follows with cardio [facility] armenta (last seen approx. 4 months ago) Hx of bilateral cataract extraction Hx of colonoscopy with polypectomy Hx of melanoma excision (05/2024) x 2- [facility] left chest may 2024 Hx of nasal polypectomy benign Status post right knee replacement Past Anesthesia History No Hx of Anesthesia Complications and No Family Hx of Anesthesia Complications History of PONV No Hx of PONV and No Hx of Motion Sickness Social History Smoking Status: Former smoker tobacco type: cigars (Rare cigar use (none in last several months) ) Do You Dip or Chew Tobacco: No Smoking End Date: 45 years Hx Alcohol Use: No Hx Substance Use: No substance use type: does not use Review of Systems - Hx of snoring - wears mouthpiece - no hx of sleep study Patient denies chest pain, shortness of breath, dyspnea on exertion, reflux, cough, wheezing, palpitations. No hx of seizures, stroke. No hx of blood clots or blood transfusions Physical Exam Vital Signs VITALS BP 120/69 P 85 TEMP 98.0 SP02 95% RESP 16 Constitutional no acute distress ENMT Mouth: no TMJ clicking Thyromental Distance: > or= 3.5 Finger Breadths (3.5) Mallampati Class: III Top partial denture Missing bottom side teeth and molars Neck + limited neck extension Respiratory normal respiratory effort; no respiratory distress Auscultation: lungs clear to auscultation bilaterally; no wheezes Cardiovascular Rate/Rhythm: regular rate and regular rhythm Heart Sounds: no murmur Vessels: no carotid bruit Musculoskeletal Spine: no pain with cervical ROM Extremities: extremities normal to inspection Psychiatric Orientation: alert Lab Results Anesthesia Preop Results Results Anesthesia Widget: WBC 9.37 K/ul (4.8-10.8) 07/20/24 Hgb 15.4 g/dl (14.0-18.0) 07/20/24 Hct 44.3 % (42.0-52.0) 07/20/24 Plt 208 K/uL (130-400) 07/20/24 Na 136 mmol/L (136-145) 07/20/24 K 4.1 mmol/L (3.5-5.1) 07/20/24 Cl 103 mmol/L (98-107) 07/20/24 CO2 27 mmol/L (21-32) 07/20/24 BUN 20 mg/dl (6-23) 07/20/24 Creat 0.92 mg/dl (0.6-1.4) 07/20/24 Glucose Level 121 mg/dl (70-99(Fasting)) H 07/20/24 PT 11.5 Seconds (9.0-12.0) 07/20/24 PTT 30 Seconds (21-31) 07/20/24 INR 1.1 (0.9-1.1) 07/20/24 HA1c 6.1 % (4.5-5.6) H 07/20/24 Blood Type O Negative 07/20/24 Antibody Screen NEGATIVE 07/20/24 Testing Electrocardiogram Date: 11/20/23 SB with 1st degree AVB with occ PVCs at 54 bpm Otherwise normal EKG per cardio Echocardiogram Date: 09/22/23 EF: 60-64% LV Function: normal RWMA: + none Other Findings: + LVH (moderate/concentric ) and + diastolic dysfunction (Grade I ) LV cavity is normal in size Basal septum is thickened and angulated consistent with sigmoid septum. Moderate AV sclerosis is present. Aortic stenosis is absent. Mild to moderate AR Mild TR Aortic root and proximal ascending aorta are moderately enlarged (4.6cm/4.6cm) Compared to prior study September 30, 2022- no significant change was found Other Testing Chest CT 09/22/23= Stable ascending thoracic aortic aneurysm (4.8cm). Continued surveillance recommended. Stable aeration of the lungs. Several small subcentimeter nodules grossly stable. Cholelithiasis.
--- NOTE | 2024-08-09 07:01 | History & Physical Bridge Note ---
Date of Service August 09, 2024 History & Physical Bridge Note I have examined the patient, reviewed the History & Physical and in the interval since the performance of the History & Physical I have noted the following changes of clinical significance: no changes noted
[2024-08-09] MEDS: FAMOTIDINE 20 MG TAB PO SCH (07:15)
[2024-08-09] MEDS: ACETAMINOPHEN 500 MG TAB PO SCH ×2 (07:15→13:44)
[2024-08-09] MEDS: dexAMETHasone**PF** 10 MG/ML VIAL IV SCH (07:15)
[2024-08-09] MEDS: GABAPENTIN 300 MG CAP PO SCH (07:15)
[2024-08-09] MEDS: LR 500ML BOLUS, THEN 15ML/HR IV SCH (07:16)
[2024-08-09] MEDS ORDERED: fentaNYL citrate PF 100 MCG/2 ML VIAL ONE (07:34)
[2024-08-09] MEDS ORDERED: PROPOFOL IV EMULSION 10 MG/ML 20 ML VIAL IV ONE (07:34)
[2024-08-09] MEDS ORDERED: LIDOCAINE 2% 2 ML VIAL/AMP(20MG/ML) INFIL ONE (07:34)
[2024-08-09] MEDS ORDERED: MIDAZOLAM HCL 1 MG/ML 2ML VIAL ONE (07:34)
[2024-08-09] MEDS ORDERED: ATROPINE SULFATE 0.1 MG/ML 10ML SYR IV PRN (08:00)
[2024-08-09] MEDS ORDERED: ePHEDrine sulfate 50 MG/ML AMP IV PRN (08:00)
[2024-08-09] MEDS ORDERED: ONDANSETRON INJ 2 MG/ML 2 ML VIAL IV PRN ×2 (08:00→11:08)
[2024-08-09] MEDS ORDERED: HYDROmorphone INJ 1 MG/ML SYRINGE IV PRN (08:00)
[2024-08-09] MEDS ORDERED: fentaNYL citrate PF 100 MCG/2 ML VIAL IV PRN (08:00)
[2024-08-09] MEDS: TRANEXAMIC ACID 1,000 MG **IV Pre-op IV SCH (08:44)
[2024-08-09] MEDS: ceFAZolin 2000MG 2,000 MG/15 ML SYR IV SCH ×2 (09:01→15:29)
[2024-08-09] MEDS: ROPIV 0.5% 246mg, Ketorolac 30mg, EPINEPHrine 0.5mg in NSS INFIL SCH (09:29)
[2024-08-09] MEDS: ORTHO JOINT ANESTHETIC ONE (09:30)
[2024-08-09] MEDS: TRANEXAMIC ACID 1,000 MG **IV Intra-op IV SCH (09:54)
--- NOTE | 2024-08-09 10:10 | Operative Report ---
PG Post Operative Report Pre & Post Diagnosis Operation Date: 08/09/24 08:40 Pre-Op Diagnosis: Left Knee Arthritis Post-Op Diagnosis: Left Knee Arthritis I identified the patient and participated in the time-out.: Yes Procedure Operation Date: 08/09/24 08:40 Actual Procedures p Left Total Knee Arthroplasty(Left) - Dwain Suggs DO Surgeon Dwain Suggs DO Simulation Engineer Reynaldo Jansen PA-C Estimated Blood Loss 50 Findings Consistent with Post-Op Diagnosis Specimens Left femoral and tibial bone Description of Procedure Implants used: I used a Devin Persona total knee arthroplasty system with a size 11 PS femur, G tibia, 34 oval patella, and a size 10 CPS polyethylene bearing. All components were cemented in place with Biomet cement. Ed arrived [facility] for the above procedure. He was seen in the preoperative holding area and the operative extremity was identified and signed. He was given a preoperative antibiotic, TXA, a spinal anesthetic and an adductor nerve block. He was taken back to the operating room and laid on the table in supine position. He was given basic sedation. The operative knee was then prepped and draped in sterile fashion. A timeout was done, and the patient and the operative extremity was properly identified. A midline incision was made directly over the patella. Dissection was taken down to the extensor mechanism. A medial parapatellar arthrotomy was used. The medial retinaculum was released and the fat pad was mostly excised. The knee was flexed and the ACL, PCL, and meniscus were removed. A drill was sent down the center of the femoral canal followed by an intramedullary jeremisa. Off that jeremias a distal femoral cutting block was placed. 9 mm was resected off the distal femur at 5 of valgus. A posterior referencing AP sizing guide was then placed on the distal femur. The femur measured to be a size 11. 2 drill holes were placed in 3 of external rotation. A 4-in-1 cutting block was then impacted into place. Anterior, posterior, and chamfer cuts were then made. The proximal tibia was then exposed. An external tibial alignment guide was placed. A tibial cut guide was then anchored in place and the proximal tibia was then resected. The posterior aspect of the knee was then opened up and any additional meniscus fragments and osteophytes were removed. The tibia measured to be a size G. The tibial plate was then placed in the appropriate rotation and the tibia was drilled and punched. Trial components were then placed. I used a size 10 CPS polyethylene insert. The knee was brought through a full range of motion and felt to be stable. The peg holes for the femoral component were then drilled. The patella was then everted and 9 mm was resected off the posterior aspect of the patella. The patella measured to be a size 34 oval. 3 peg holes were then drilled. A trial patella was placed. The knee was once again brought through a full range of motion and felt to be stable. Trial components were then removed. The surrounding soft tissues were injected with 100 cc of an orthopedic pain control cocktail. All components were then cemented into place with Biomet cement. The final polyethylene insert was then snapped into place. Once cement was dry the tourniquet was deflated. Hemostasis was obtained. A dilute betadyne lavage was then done for 3 minutes. The joint was then irrigated with normal saline solution. The medial parapatellar arthrotomy was then closed with #1 Vicryl suture. The skin was closed with 2-0 Vicryl, 3-0V lock suture, and jona. A soft compressive dressing was placed. He was then transferred to a hospital bed and taken to the postanesthesia care unit in stable condition. He tolerated the procedure well. Reynaldo Jansen PA-C, was present for the entire procedure. He was critical for patient positioning, prepping, draping, retraction exposure, wound closure and application of sterile dressing. I attest to the content of the Intraoperative Record and any orders documented therein. Any exceptions are noted below.
--- NOTE | 2024-08-09 10:51 | XRay Report ---
XR knee LT 1 or 2V routine CLINICAL HISTORY: Surgical Post Op COMPARISON: None FINDINGS: Left knee prosthesis shows no hardware complication. There is expected soft tissue gas. Sk in jona are present. IMPRESSION: Unremarkable postoperative exam. ACT 112: Negative or not required by law. Electronically signed by: Quinten Waite M.D. 08/09/2024 10:50 AM
[2024-08-09] MEDS ORDERED: MAGNESIUM HYDROXIDE SUSP 30 ML UDC PO PRN (11:08)
[2024-08-09] MEDS ORDERED: HYDROmorphone INJ 0.5 MG/0.5 ML SYR IV PRN (11:08)
[2024-08-09] MEDS ORDERED: bisacodyL 10 MG SUPP PR PRN (11:08)
[2024-08-09] MEDS ORDERED: NALOXONE HCL 0.4 MG/1 ML VIAL/CARP IV PRN (11:08)
[2024-08-09] MEDS ORDERED: METOCLOPRAMIDE HCL INJ 5 MG/ML 2 ML VIAL IV PRN (11:08)
[2024-08-09] MEDS: LR 60ML/HR IV SCH (11:28)
[2024-08-09] MEDS: KETOROLAC TROMETHAMINE 15 MG/ML VIAL IV SCH (12:21)
--- NOTE | 2024-08-09 12:49 | Anesthesiology Progress Note ---
Date of Service August 09, 2024 Anesthesia Post Procedure Vital Signs Vital Signs: Temp Pulse Pulse Resp BP Pulse Ox O2 Del Method 08/09/24 12:15 36.5 C 59 L 16 129/52 L 95 Room Air 08/09/24 11:43 36.5 C 52 L 16 144/68 H 95 Room Air 08/09/24 10:50 49 L 16 119/59 L 95 Room Air 08/09/24 10:40 51 L 12 107/61 93 Room Air 08/09/24 10:30 49 L 14 112/56 L 98 Oxymask 08/09/24 10:20 36 C L 52 L 16 110/56 L 96 Oxymask 08/09/24 10:15 36.6 C 52 L 18 124/62 94 Room Air 08/09/24 07:02 36.8 C 60 20 128/74 95 Room Air O2 Flow Rate 08/09/24 12:15 08/09/24 11:43 08/09/24 10:50 08/09/24 10:40 08/09/24 10:30 3 08/09/24 10:20 6 08/09/24 10:15 08/09/24 07:02 Pain Intensity Left Knee: Pain Intensity: 5 Transfer of Care Handoff Completed per policy Notes Mental Status: alert / awake / arousable and participated in evaluation Patient Amnestic to Procedure: Yes Nausea / Vomiting: adequately controlled Pain: adequately controlled Airway Patency, RR, SpO2: stable & adequate BP & HR: stable & adequate Hydration State: stable & adequate Anesthetic Complications: no major complications apparent and Pt Satisfied with anesthetic care
[2024-08-09] MEDS: oxyCODONE HCL IR 5 MG TAB (IMMEDIATE RELEASE) PO PRN (15:41)
[2024-08-09 17:15] VITALS: RESP 18
[2024-08-09] MEDS: SENNA 8.6 MG TAB PO SCH (20:24)
[2024-08-09] MEDS: lisinopril 5 MG TAB PO SCH (20:25)
[2024-08-09] MEDS: ASPIRIN 81 MG ECTAB PO SCH (20:25)
[2024-08-09] MEDS: DOCUSATE SODIUM 100 MG CAP PO SCH (20:25)
[2024-08-09] MEDS: ROSUVASTATIN CALCIUM 20 MG TAB PO SCH (20:26)
[2024-08-09] MEDS: METOPROLOL SUCC 25MG EXT REL TAB PO SCH (20:26)
[2024-08-10] MEDS: LEVOTHYROXINE SODIUM 25 MCG TABLET PO SCH (05:08)
[2024-08-10 07:04] VITALS: BP 139/67; PULSE 52; TEMP 97.7; O2SAT 97
[2024-08-10] MEDS: dexAMETHasone 4 MG TAB PO SCH (07:34)
[2024-08-10] MEDS: MULTIVITAMIN TAB PO SCH (07:34)
[2024-08-10] MEDS: SERTRALINE HCL 50 MG TABLET PO SCH (07:34)
[2024-08-10] MEDS: EZETIMIBE 10 MG TAB PO SCH (07:34)
--- NOTE | 2024-08-10 10:49 | Orthopedic Progress Note ---
Date of Service August 10, 2024 Assessment & Plan (1) Status post left knee replacement: Assessment: Status post left total knee arthroplasty. Plan: Overall, he is doing quite well today with good pain control left knee. He will work with physical therapy later this morning to work on ambulation and range of motion exercises. He was started on aspirin for DVT prophylaxis. He can be discharged home later this morning pending formal physical therapy evaluation recommendations. Dressings can be changed prior to discharge and after working with physical therapy. Dressings will be a CARIDAD hose with an ABD dressing. He will follow-up with orthopedics in 2 to 3 weeks for continued postoperative management or sooner if needed. Subjective . Gennaro was seen this morning resting comfortably in no apparent distress. He notes that his pain is well-controlled to the left knee. He has been up and ambulating with no significant issues today. He has yet to work with physical therapy this morning. He denies any concerns with his surgical incision site. Denies any active bleeding, discharge, or signs of infection. He denies any other concerns today. Review of Systems All systems reviewed & are unremarkable except as noted in HPI & below. Physical Exam . On physical examination of the left knee, the dressings are clean, dry, intact with no signs of active bleeding, discharge, or signs infection. His leg is on full extension. He has limited range of motion secondary to postoperative stiffness soreness. Calf soft nontender to palpation. Negative Homans' sign. Intact plantarflexion and dorsiflexion of the left ankle. +2 DP and PT pulse. Less than 2-second capillary refill. Normal sensation. Neurovascular intact. Results & Data Results & Data Laboratory Results . Diagnostic Findings . Knee X-Ray 08/09/24 10:26 XR knee LT 1 or 2V routine CLINICAL HISTORY: Surgical Post Op COMPARISON: None FINDINGS: Left knee prosthesis shows no hardware complication. There is expected soft tissue gas. Skin jona are present. IMPRESSION: Unremarkable postoperative exam. ACT 112: Negative or not required by law. Electronically signed by: Quinten Waite M.D. 08/09/2024 10:50 AM PG Care Time/CCT Total # of Minutes Spent Total Time Spent with Patient: Total time spent is greater than 50% in coordination of care (as documented) at patient's floor/unit and/or counseling patient: Coding Level of Care Code 26836 Post Operative Follow-Up Diagnoses Status post left knee replacement Z96.652
--- NOTE | 2024-08-10 10:50 | Discharge Summary ---
Date of Service August 10, 2024 Principal Diagnosis Same as "Discharge Diagnosis" noted below under Discharge Instructions. Discharge Exam . On physical examination of the left knee, the dressings are clean, dry, intact with no signs of active bleeding, discharge, or signs infection. His leg is on full extension. He has limited range of motion secondary to postoperative stiffness soreness. Calf soft nontender to palpation. Negative Homans' sign. Intact plantarflexion and dorsiflexion of the left ankle. +2 DP and PT pulse. Less than 2-second capillary refill. Normal sensation. Neurovascular intact. Discharge Data Procedures Performed Operation Date: 08/09/24 08:40 Actual Procedures p Left Total Knee Arthroplasty(Left) - Dwain Suggs DO Ordered Studies 08/09/24 05:00 US - OR guided needle placemen Routine Hospital Course (1) Status post left knee replacement: On August 09, 2024 Gennaro arrived at [facility] and underwent a left total knee arthroplasty performed by Dr. Suggs with no complications. He had a spinal anesthetic. Postoperatively, he was started on aspirin for DVT prophylaxis and transferred to the general orthopedic floor in stable condition. His hospital course was uneventful. On postoperative day #1, his vital signs were stable and his pain was well-controlled. He participated well with physical therapy working on ambulation and range of motion exercises. He was then discharged home in stable condition. He will follow-up with orthopedics in 2 to 3 weeks for continued postoperative management or sooner if needed. PG Care Time/CCT Total # of Minutes Spent Total Time Spent with Patient: Total time spent is greater than 50% in coordination of care (as documented) at patient's floor/unit and/or counseling patient: Discharge Plan Discharge Items Patient Disposition: Home - Home Health Services Reason For Visit: Left Knee Arthritis Discharge Diagnosis: Same Activity: Per Instructions section Non-emergency contact: Surgeon Call non-emergency contact if: your temperature is above 101.5, your wound has increased redness, your wound has increased drainage and your wound pain has increased Follow-up/Referrals: Edward Damon MD [Primary Care Provider] - Diet: Regular Addtl Attending Provider Instructions: Activity and Therapy Recommendations: * If you are using [facility] then therapy will be provided at your home until they feel you have accomplished all of your goals. * If you are using [facility] then Physical Therapy will be provided until they feel you are ready to start Outpatient Physical Therapy. * If you are not using home therapy then Outpatient Physical Therapy should start about 3-5 days from your day of surgery. Therapy will last about 6-10 weeks * It is important not to put a pillow under your knee when you are relaxing or sleeping. It is just as important to make sure you are getting your knee perfectly straight as it is to regain your knee bend. * You were shown a series of exercises in the hospital. Do these exercises three times each day including the exercises you were shown in physical therapy. * Get up and walk several times each day. For the first four weeks, try not to stand or walk for more than one hour at a time. If you do stand or walk for more than one hour, you will not hurt anything, but your leg will likely swell. * As you feel comfortable, you may change from the walker or crutches to a cane and then to independent walking. Medications: * Narcotic You will likely be sent home from the hospital with a prescription for the narcotic pain medication that worked best throughout your stay. * Cefadroxil -take the antibiotic twice a day for 10 days to help prevent infection. * Aspirin Most patients will be required to take Aspirin 81mg twice a day for 6 weeks after surgery. This is obtained [id number] and a prescription is not necessary. * Other medications may be prescribed for specific circumstances. If you have any questions, please call the office at . * Resume previous home medications unless otherwise instructed TEDs/Elastic Stockings: The white elastic stockings help limit swelling and prevent blood clots from forming in your legs.~ The more you wear them, the more they work. Wear them for 2 weeks. Dressing Care: The dressing can be changed after physical therapy on postop day #1. Daily dry dressing changes for a few days, especially if the incision is still draining some. If the incision is not draining then you may leave the jona open to air. If there is a little bit of drainage or if the jona are getting stuck on your clothing then cover the incision with a dry dressing. The jona will be removed at your 2 week follow-up appointment. Showering: You may shower 5 days from the day of surgery as long as the incision is no longer draining. You may shower with the jona exposed. Let soapy water run over the jona and pat them dry. Do not scrub or soak the incision. Diet: You may resume your previous diet. Things To Watch For: * Drainage from the incision site that occurs more than one week after your surgery. * Increased redness at the incision site. * Fever above 102 degrees Fahrenheit. * Unusual chest pain or shortness of breath. * Call [facility] at with any of the above problems Follow-Up Visit: Follow-up with Dr. Suggs's office 2-3 weeks after your day of surgery. We will remove your jona and answer any questions. If you have any additional questions or concerns, Dr Suggs is usually in the office at the same time and will be available An appointment was probably scheduled when you signed-up for surgery in the office. If you have any questions call Office Instructions: More detailed instructions as well as Frequently Asked Questions were provided in a folder by our office when you signed-up for surgery. Please review these instructions when you get home. If you have any further questions or concerns, please feel free to call the office at [phone] Pending Studies at Discharge: No Stand-Alone Forms: My [facility] [employer], Smoking Cessation Medications and DC Order Prescriptions: New aspirin 81 mg Tablet,Delayed Release (Dr/Ec) 81 mg PO BID 42 Days Qty: 0 0RF cefadroxil 500 mg capsule 500 mg PO BID 10 Days Qty: 20 0RF oxycodone 5 mg tablet 5 mg PO Q6H PRN (Reason: pain) Qty: 30 0RF Continued sertraline [Zoloft] 25 mg tablet 50 mg PO QAM diazepam [Valium] 5 mg tablet 5 mg PO BID PRN (Reason: Anxiety) rosuvastatin [Crestor] 20 mg tablet 20 mg PO QPM metoprolol succinate [Toprol XL] 25 mg tablet extended release 24 hr 25 mg PO QPM testosterone 50 mg/5 gram (1 %) gel 1 tube transdermal QAM lisinopril 5 mg tablet 5 mg PO QPM nitroglycerin [Nitrostat] 0.4 mg tablet, sublingual 0.4 mg sublingual Q5M PRN (Reason: Chest Pain) Rx Instructions: do not exceed 3 doses per episode albuterol sulfate [ProAir HFA] 90 mcg/actuation HFA aerosol inhaler 1 inh inhalation QID PRN (Reason: Bronchospasm) calcium polycarbophil [FiberCon] 625 mg tablet 625 mg PO BID calcium carbonate-vitamin D3 600 mg(1,500mg) -200 unit tablet 1 tab PO QAM glucosamine-chondroitin 900 mg tablet 900 mg PO BID cholecalciferol (vitamin D3) 25 mcg (1,000 unit) capsule 25 mcg PO QAM All Day Allergy (cetirizine) 10 mg capsule 10 mg PO QAM coenzyme Q10 200 mg capsule 200 mg PO QPM sildenafil [Viagra] 100 mg tablet 100 mg PO DAILY PRN (Reason: Erectile Dysfunction) Rx Instructions: administer 30 minutes to 4 hours before activity multivitamin Tablet 1 tab PO QAM ascorbate calcium (vitamin C) 500 mg tablet 500 mg PO QAM levothyroxine 25 mcg Tablet 25 mcg PO QAM ezetimibe 10 mg tablet 10 mg PO QAM amoxicillin 500 mg tablet 2,000 mg PO ONCE PRN (Reason: dental) Rx Instructions: 4 tabs 1 hour prior to procedure Held naproxen sodium [Aleve] 220 mg Tablet 220 mg PO Q12H PRN (Reason: Pain) Hold Instructions: Resume on 09/22/24. aspirin [Adult Low Dose Aspirin] 81 mg tablet,delayed release (DR/EC) 81 mg PO QPM Hold Instructions: Resume on 09/22/24. Discontinued hydrocodone-acetaminophen 5-325 mg tablet 1 tab PO Q6H PRN (Reason: pain) Qty: 60 0RF Admission Data Admit Date/Time: 08/09/24 10:26 Attending Provider: Dwain Suggs Admit Provider: Dwain Suggs Primary Care Provider: Edward Damon Other Interventions: Discharge Summary Assessment (RN) Last Done: 08/10/24 09:01
== END 2024-08-10 11:21 | disposition home health service (06) ==
LOC: ASU 06:38 → 3E 06:38